=== PATIENT | male | born 1980 | race Caucasian/White ===

== ENCOUNTER 2021-11-22 12:35 | Emergency (ER) | payer OTHER ==
[~2021-11-22] VITALS: Ht 175.3 cm; Wt 83.9 kg
[2021-11-22] MEDS ORDERED: NEUR100C PO (12:47)
[2021-11-22] MEDS ORDERED: TRAM1CAP15 PO (12:47)
[2021-11-22] MEDS ORDERED: OXYC1TAB23 PO (12:47)
[2021-11-22] MEDS ORDERED: PERCOCET 5MG/325MG TAB PO ONE (13:35)
[2021-11-22] MEDS ORDERED: KETOROLAC 30 MG/ML 1ML VIAL IM ONE (13:35)
[2021-11-22] MEDS ORDERED: PERC5TAB12 PO (14:55)
[2021-11-22 15:02] VITALS: BP 143/89
== END 2021-11-22 15:03 | disposition home or self-care (01) ==
LOC: M ED 12:35 → EDBD 12:35 → M ED 15:03
DX: M87.872 Other osteonecrosis, left ankle (principal)
CPT/HCPCS: 73502; 96372; 99283; J1885